=== PATIENT | female | born 1950 | race Caucasian/White ===

== ENCOUNTER 2016-09-08 08:57 | Emergency (ER) | payer MEDICARE ==
--- NOTE | 2016-09-08 09:48 | UC ---
Complaint Female HPI - History Of Current Complaint Stated Complaint: URINARY Time Seen by Provider: 09/08/16 09:00 Hx Obtained From: Patient Hx Last Menstrual Period: n/a ?: No Onset/Duration: Gradual Onset, Lasting Weeks - 5, Worse Since - in the last 3 weeks. Timing: Constant Severity Initially: Mild Severity Currently: Moderate Character: Burning, Cramping Aggravating Factor(s): Urination Alleviating Factor(s): Nothing Associated Signs And Symptoms: Positive: Fever. Negative: Vaginal Discharge, Genital Swelling - Risk Factors Ectopic Risk Factor: Negative Ovarian Torsion Risk Factor: Negative - Allergies/Home Medications Allergies/Adverse Reactions: Allergies Allergy/AdvReac Type Severity Reaction Status Date / Time Ciprofloxacin [From Cipro] Allergy Bleeding Verified 09/08/16 09:21 Clarithromycin Allergy Hives/Diff. Verified 09/08/16 09:20 Breathing/I tching Eggs or Egg-derived Products Allergy Hives Verified 09/08/16 09:20 Misoprostol [From Cytotec] Allergy Swelling Verified 09/08/16 09:21 Of Face,Lips,& Throat Sulfa Antibiotics Allergy Dizziness Verified 09/08/16 09:20 seasonal Allergy Unknown Uncoded 09/08/16 09:20 Reaction Details steroids AdvReac Unknown Uncoded 09/08/16 09:20 Reaction Details PMH/Surg Hx/FS Hx/Imm Hx Endocrine History Of: Reports: Thyroid Disease - hypo Cardiovascular History Of: Reports: Cardiac Disorders - [facility] FAMILY HX Respiratory History Of: Reports: Asthma - Surgical History Surgical History: Yes Surgery Procedure, Year, and Place: appy, right ovarian cyst, t/a, sinus 2015. RIGHT PARTIAL THROIDECTOMY JANUARY 2015; left partial thyroid 03/2015 - Family History Known Family History: Positive: Cardiac Disease, Hypertension, Diabetes - Social History Occupation: Retired Lives: Alone Alcohol Use: Weekly Alcohol Amount: 2-3-4 Substance Use Type: None Substance Use Comment - Amount & Last Used: 3 cups coffee per day Smoking Status (MU): Never Smoked Tobacco Have You Smoked in the Last Year: No Review of Systems Constitutional: Fever Genitourinary: Dysuria, Frequency, Urgency All Other Systems Reviewed And Are Negative: Yes Physical Exam Triage Information Reviewed: Yes Appearance: Well-Appearing, No Pain Distress, Obese Vital Signs: Initial Vital Signs Temp 98.7 F 09/08/16 09:00 Pulse 79 09/08/16 09:00 Resp 20 09/08/16 09:00 BP 148/87 09/08/16 09:00 Vital Signs Reviewed: Yes Eyes: Positive: Conjunctiva Clear ENT Exam: Normal Neck exam: Normal Respiratory Exam: Normal Cardiovascular Exam: Normal Abdomen Description: Positive: Other: - Vulva with erythema, swelling and tenderness.. Negative: Nontender - Tender suprapubic and LUQ, Peritoneal Signs Bowel Sounds: Positive: Present Musculoskeletal Exam: Normal Neurological Exam: Normal Psychological Exam: Normal Skin: Positive: rashes - erythematous, excoriated papular rash on the abdomen Complaint Female Dx - Differential Dx/Diagnosis Differential Diagnosis/HQI/PQRI: Appendicitis, Cervicitis, Urinary Tract Infection Provider Diagnoses: UTI. Vulvovaginal candidiasis. Eczema Discharge - Discharge Plan Condition: Stable Disposition: HOME Prescriptions: Fluconazole 150 MG (NF) [Diflucan 150 mg (NF)] 150 mg PO ONCE #2 tab Nitrofurantoin Monohyd Macro [Macrobid] 100 mg PO BID #14 cap Triamcinolone 0.1% CREAM(NF) [Kenalog Cream 0.1%(NF)] 1 applic TOPICAL BID PRN # 80 gm PRN Reason: Rash Patient Education Materials: Urinary Tract Infection in Women (ED), Nitrofurantoin Combination (By mouth), Fluconazole (By mouth), Eczema (ED), Triamcinolone (On the skin) Additional Instructions: Hold the lipitor on the day that you take the fluconazole. Let the pharmacist know that you will be holding the lipitor. Triamcinolone on the vulva can help with the swelling and the irritation.
[2016-09-08 10:21] VITALS: BP 132/61
== END 2016-09-08 10:22 | disposition home or self-care (01) ==
LOC: UCCORT 08:57
DX: N39.0 Urinary tract infection, site not specified (principal); B37.3 Candidiasis of vulva and vagina; L30.9 Dermatitis, unspecified; R50.9 Fever, unspecified; E03.9 Hypothyroidism, unspecified; J45.909 Unspecified asthma, uncomplicated; Z88.1 Allergy status to other antibiotic agents; Z88.2 Allergy status to sulfonamides; Z88.8 Allergy status to other drugs, medicaments and biological substances; Z88.6 Allergy status to analgesic agent; Z91.012 Allergy to eggs
CPT/HCPCS: 87086; 99212; G0463

== ENCOUNTER 2017-01-27 13:09 | Emergency (ER) | payer MEDICARE | END 2017-01-27 15:29 | disposition left against medical advice (07) | LOC: UCCORT 13:09 | DX: N39.9 Disorder of urinary system, unspecified (principal); Z53.21 Procedure and treatment not carried out due to patient leaving prior to being seen by health care provider ==

== ENCOUNTER 2017-04-22 09:23 | Emergency (ER) | payer MEDICARE ==
[2017-04-22 09:31] VITALS: BP 130/69
--- NOTE | 2017-04-22 09:35 | UC ---
Complaint Female HPI - HPI Summary HPI Summary: 67 YEAR OLD FEMALE PRESENTS WITH SUPRAPRAPUBIC PAIN, NAUSEA, VOMITING, FEVER AND CHILLS. SHE WAS RECENTLY TREATED FOR A UTI/BV AND FEELS MISERABLE. I WILL SEND HER TO THE ER. - History Of Current Complaint Chief Complaint: UCGU Stated Complaint: PERSONAL Time Seen by Provider: 04/22/17 09:35 Hx Obtained From: Patient Hx Last Menstrual Period: n/a Onset/Duration: Lasting Days Timing: Constant Severity Initially: Moderate Severity Currently: Moderate Pain Scale Used: 0-10 Numeric - 5 - Allergies/Home Medications Allergies/Adverse Reactions: Allergies Allergy/AdvReac Type Severity Reaction Status Date / Time Ciprofloxacin [From Cipro] Allergy Bleeding Verified 04/22/17 09:31 Clarithromycin Allergy Hives/Diff. Verified 04/22/17 09:31 Breathing/I tching Eggs or Egg-derived Products Allergy Hives Verified 04/22/17 09:31 Misoprostol [From Cytotec] Allergy Swelling Verified 04/22/17 09:31 Of Face,Lips,& Throat Sulfa Antibiotics Allergy Dizziness Verified 04/22/17 09:31 seasonal Allergy Unknown Uncoded 04/22/17 09:31 Reaction Details steroids AdvReac Unknown Uncoded 04/22/17 09:31 Reaction Details Home Medications: Home Medications Atorvastatin* [Lipitor*] 20 mg PO DAILY 04/22/17 [History Confirmed 04/22/17] Beclomethasone 40 MCG MDI(NF) [Qvar 40 MCG MDI(NF)] 2 puff INH BID 04/22/17 [ History Confirmed 04/22/17] Calcitriol CAP* [Rocaltrol CAP*] 0.5 mcg PO DAILY 04/22/17 [History Confirmed 04/22/17] Famotidine TAB* [Pepcid 20 MG TAB*] 20 mg PO DAILY PRN 04/22/17 [History Confirmed 04/22/17] Furosemide TAB* [Lasix TAB*] 20 mg PO DAILY 04/22/17 [History Confirmed 04/22/17 ] Levothyroxine TAB* [Synthroid TAB*] 150 mcg PO DAILY 04/22/17 [History Confirmed 04/22/17] Warfarin TAB(*) [Coumadin TAB(*)] 2 mg PO DAILY 04/22/17 [History Confirmed 03/31] PMH/Surg Hx/FS Hx/Imm Hx Previously Healthy: Yes - Surgical History Surgical History: Yes Surgery Procedure, Year, and Place: appy, right ovarian cyst, t/a, sinus 2015. RIGHT PARTIAL THROIDECTOMY JANUARY 2015; left partial thyroid 03/2015 - Family History Known Family History: Positive: None, Cardiac Disease, Hypertension, Diabetes - Social History Alcohol Use: Weekly Alcohol Amount: 2 Substance Use Type: None Substance Use Comment - Amount & Last Used: 3 cups coffee per day Smoking Status (MU): Never Smoked Tobacco Have You Smoked in the Last Year: No - Immunization History Most Recent Influenza Vaccination: no 2016 Review of Systems Constitutional: Negative Skin: Negative Eyes: Negative ENT: Negative Respiratory: Negative Cardiovascular: Negative Gastrointestinal: Negative Genitourinary: Negative Motor: Negative Neurovascular: Negative Musculoskeletal: Negative Neurological: Negative Psychological: Negative All Other Systems Reviewed And Are Negative: Yes Physical Exam Triage Information Reviewed: Yes Vital Signs: Initial Vital Signs Temp 36.8 C 04/22/17 09:26 Pulse 69 04/22/17 09:26 Resp 14 04/22/17 09:26 BP 130/69 04/22/17 09:26 Pulse Ox 98 04/22/17 09:26 Eye Exam: Normal ENT Exam: Normal Dental Exam: Normal Neck exam: Normal Neck: Positive: 1 Respiratory Exam: Normal Cardiovascular Exam: Normal Abdominal Exam: Normal Musculoskeletal Exam: Normal Neurological Exam: Normal Psychological Exam: Normal Skin Exam: Normal Complaint Female Dx - Differential Dx/Diagnosis Provider Diagnoses: FEVER. CHILLS. SUPRPUBIC PAIN. COUGH. SINUS CONGESTION Discharge - Discharge Plan Condition: Stable Disposition: HOME Patient Education Materials: Abdominal Pain (ED) Referrals: Willem Lawrence MD [Primary Care Provider] - Additional Instructions: PATIENT SUGGESTED TO GO TO ER FOR SEVERE LLQ PAIN.
== END 2017-04-22 10:07 | disposition home or self-care (01) ==
LOC: UCCORT 09:23
DX: R10.30 Lower abdominal pain, unspecified (principal); R50.9 Fever, unspecified; R05 Cough; R09.81 Nasal congestion; Z87.440 Personal history of urinary (tract) infections; Z79.01 Long term (current) use of anticoagulants; Z88.1 Allergy status to other antibiotic agents
CPT/HCPCS: 81003; 99212; G0463